=== PATIENT | female | born 1955 | race Caucasian/White ===

== ENCOUNTER 2017-01-24 07:00 | Day surgery (SDC) | payer OTHER ==
[~2017-01-24 07:00] MED LIST: Dexamethasone 4 MG/ML SDV ONE; Ketorolac 30 MG/ML SDV ONE; Lactated Ringers 1,000 ML IV SCH; Lactated Ringers 1,000 ML ONE; Lidocaine 1% 2 ML SDV ONE; Lidocaine 1%/Sod Bicarbonate in NS 8.4% 1 ML Syringe IV PRN; Midazolam 1 MG/ML 2 ML SDV ONE; Ondansetron 4 MG/2 ML SDV ONE; Propofol 200 MG/20 ML SDV ONE; Rocuronium 50 MG/5 ML Vial ONE; Sodium Chloride 0.9% 10 ML Syringe FLUSH PRN; ceFAZolin 1 GM Vial ONE; fentaNYL 250 MCG/5 ML SDV ONE
--- NOTE | 2017-01-24 07:44 | PCM.PREANE ---
Preanesthetic Assessment - ANESTHESIA/TRANSFUSION/FAMILY HX Anesthesia/Transfusion History: No Prior Transfusion(s), Prior Anesthesia Type of Anesthesia Reaction: Reports: Other (see below) (Hx of respiratory distress with hyster.). Denies: Allergy, Anesthesia Awareness, Excessive Somnolence, Excessive Nausea/Vomiting, Excessive Itching, Excessive Shivering, Malignant Hyperthermia, Malignant Hyperthermia, Family History, Pseudocholinesterase Deficiency, Pseudocholinesterase Deficiency, Family History of, Urinary Retention, Unknown Family History of Anesthesia Reaction: No Intubation History: Unknown - REVIEW OF SYSTEMS Constitutional: Reports: no symptoms Respiratory: Reports: no symptoms (GEORGINA/ current smoker 2-3 packs/day times 45 years./COPD), cough, shortness of breath (orthopnea) Cardiovascular: Reports: blood pressure problem, dyspnea on exertion GI: Reports: no symptoms (GERD/Hiatal hernia), difficulty swallowing (thick mucous.) Other: Reports: diabetes (0730 BS= 100), sinus problem - PHYSICAL ASSESSMENT HR: 76 O2 Sat by Pulse Oximetry: 93 RR: 16 BP: 157/79 Temp: 37.0 C Height: 1.5 m Weight: 102.058 kg NPO Status Date: 01/23/17 NPO Status Time: 23:59 ASA Class: 3 Mental Status: alert & oriented x3 Airway Class: Mallampati = 3 Dentition: Reports: normal dentition, missing tooth/teeth, caries Thyro-Mental Finger Breadths: 3 Mouth Opening Finger Breadths: 3 ROM/Head Extension: full Respiratory Status: lungs clear to auscultation bilaterally, diminished breath sounds Cardiovascular Status: regular rate & rhythm, normal S1, S2, no murmur - LAB Values: Laboratory Last Values POC Glucose 100 mg/dL (80-115) 01/24/17 07:30 Reviewed and noted. - IMAGING/EKG Impressions: EKG: SR rate 66 CXR: Hyperinflation, no acute changes noted. - ALLERGIES Allergies/Adverse Reactions: Allergies Allergy/AdvReac Type Severity Reaction Status Date / Time egg Allergy Rash Verified 01/23/17 14:23 wheat Allergy Cough Verified 01/23/17 14:23 - ANESTHESIA PLAN Preop Beta Jimena: Yes Beta Jimena: Atenolol Beta-Jimena Last Dose Date: 01/24/17 Beta-Jimena Last Dose Time: 05:15 Anesthesia Type Planned: general anesthesia - ACKNOWLEDGEMENTS Pt an appropriate candidate for the planned anesthesia: Yes Alternatives and risks of anesthesia discussed w pt/guardian: Yes Pt/Guardian understands and agree with anesthesia plan: Yes PreAnesthesia Questionnaire HEENT History: Reports: None Cardiovascular History: Reports: High cholesterol, Hypertension Other Cardiovascular History: hypercholesterolemia - possible PVD per patient Respiratory History: Reports: Sleep apnea Gastrointestinal History: Reports: GERD Genitourinary History: Reports: None Other Genitourinary History: chronic hematuria 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: Musculoskeletal History: Reports: Arthritis Neurological History: Reports: None Other Neuro History: Bilateral Sciatica Other Psychiatric History: Insomnia Endocrine/Metabolic History: Reports: Diabetes, type II, Obesity/BMI 30+ Hematologic History: Reports: Polycythemia Immunologic History: Reports: None Oncologic (Cancer) History: Reports: None Dermatologic History: Reports: Other (see below) Other Dermatologic History: Hydradenitis, Right groin abscess - Past Surgical History HEENT Surgical History: Reports: Tonsillectomy Cardiovascular Surgical History: Reports: None Respiratory Surgical History: Reports: None GI Surgical History: Reports: Cholecystectomy Female Surgical History: Reports: D&C, Hysterectomy Endocrine Surgical History: Reports: None Neurological Surgical History: Reports: None Musculoskeletal Surgical History: Reports: None Oncologic Surgical History: Reports: None - SUBSTANCE USE Smoking Status *Q: Heavy Tobacco Smoker Tobacco Use Within Last Twelve Months: Cigarettes Second Hand Smoke Exposure: No Recreational Drug Use History: No - HOME MEDS Home Medications: Home Meds Acetaminophen [Tylenol Extra Strength] 500 mg PO Q4H PRN 07/26/15 [History] Aspirin 81 mg PO DAILY 07/26/15 [History] Calcium Carbonate [Antacid] 600 mg PO BID 07/26/15 [History] Gemfibrozil 600 mg PO BID 07/26/15 [History] Ibuprofen 200 mg PO Q6HR PRN 07/26/15 [History] Lisinopril/Hydrochlorothiazide [Lisinopril-Hctz 20-12.5 mg Tab] 1 tab PO DAILY 07/26/15 [History] Omeprazole 20 mg PO DAILY 07/26/15 [History] Ranitidine HCl 300 mg PO BID 07/26/15 [History] Zolpidem Tartrate [Ambien] 5 mg PO BEDTIME 07/26/15 [History] atorvaSTATin [Lipitor] 20 mg PO DAILY 07/26/15 [History] Atenolol [Atenolol] 50 mg PO DAILY 01/23/17 [History] Magnesium 200 mg PO DAILY 01/23/17 [History] Milk Thistle 500 mg PO BID 01/23/17 [History] - CURRENT (IN HOUSE) MEDS Current Meds: Current Medications Lactated Ringer's (Ringers, Lactated) 1,000 mls @ 125 mls/hr IV ASDIRECTED JUAN Stop: 01/24/17 23:00 Lidocaine/Sodium Bicarbonate (Buffered Lidocaine 1% In Ns 8.4%) 0.25 ml IV ONETIME PRN PRN Reason: Prior to IV Start Stop: 01/24/17 18:00 Sodium Chloride (Saline Flush) 10 ml FLUSH ASDIRECTED PRN PRN Reason: Keep Vein Open Stop: 01/24/17 18:00 Discontinued Medications Cefazolin Sodium (Ancef) Confirm Administered Dose 2 gm .ROUTE .STK-MED ONE Stop: 01/24/17 06:10 Dexamethasone (Dexamethasone) Confirm Administered Dose 4 mg .ROUTE .STK-MED ONE Stop: 01/24/17 06:10 Fentanyl (Sublimaze) Confirm Administered Dose 250 mcg .ROUTE .STK-MED ONE Stop: 01/24/17 06:11 Lactated Ringer's (Ringers, Lactated) Confirm Administered Dose 1,000 mls @ as directed .ROUTE .STK-MED ONE Stop: 01/24/17 06:10 Ketorolac Tromethamine (Toradol) Confirm Administered Dose 30 mg .ROUTE .STK- MED ONE Stop: 01/24/17 06:10 Lidocaine HCl (Lidocaine 1%) Confirm Administered Dose 6 ml .ROUTE .STK-MED ONE Stop: 01/24/17 06:10 Midazolam HCl (Versed 1 Mg/Ml) Confirm Administered Dose 2 mg .ROUTE .STK-MED ONE Stop: 01/24/17 06:11 Ondansetron HCl (Zofran) Confirm Administered Dose 4 mg .ROUTE .STK-MED ONE Stop: 01/24/17 06:10 Propofol (Diprivan 20 Ml) Confirm Administered Dose 200 mg .ROUTE .STK-MED ONE Stop: 01/24/17 06:11 Rocuronium [place] (Zemuron) Confirm Administered Dose 50 mg .ROUTE .STK-MED ONE Stop: 01/24/17 06:10
[2017-01-24] MEDS ORDERED: Albuterol 0.083% 2.5 MG/3 ML Neb Soln NEB ONE (07:45)
[2017-01-24] MEDS ORDERED: Albuterol 0.083% 2.5 MG/3 ML Neb Soln ONE (07:47)
[2017-01-24] MEDS ORDERED: Bupivacaine 0.25% 30 ML SDV ONE (07:50)
[2017-01-24] MEDS ORDERED: Lidocaine 1% 2 ML SDV ONE ×3 (08:42)
[2017-01-24] MEDS ORDERED: Propofol 200 MG/20 ML SDV ONE (08:45)
[2017-01-24] MEDS ORDERED: Succinylcholine/Normal Saline 100 MG/5 ML Syringe ONE (08:57)
[2017-01-24] MEDS ORDERED: Albuterol 6.7 GM Inhaler INH ONE (08:57)
[2017-01-24] MEDS ORDERED: HYDROmorphone 1 MG/ML Syringe ONE (08:58)
[2017-01-24] MEDS ORDERED: Phenylephrine/Normal Saline 100 MCG/ML 10 ML Syringe ONE (09:07)
[2017-01-24] MEDS ORDERED: fentaNYL 100 MCG/2 ML SDV IVPUSH PRN (09:11)
[2017-01-24] MEDS ORDERED: Albuterol 0.083% 2.5 MG/3 ML Neb Soln NEB PRN (09:11)
[2017-01-24] MEDS ORDERED: Ondansetron 4 MG/2 ML SDV IVPUSH PRN (09:11)
[2017-01-24] MEDS ORDERED: ePHEDrine 50 MG/ML SDV IVPUSH PRN (09:11)
[2017-01-24] MEDS ORDERED: ePHEDrine/Normal Saline 25 MG/5 ML Syringe ONE (09:15)
[2017-01-24] MEDS ORDERED: Phenylephrine 1 MG in Sodium Chloride 0.9% 10 ML IV SCH (09:15)
[2017-01-24] MEDS ORDERED: HYDROmorphone 0.5 MG/0.5 ML Syringe IVPUSH PRN (10:15)
--- NOTE | 2017-01-24 10:22 | PCM.POSTAN ---
POST ANESTHESIA ASSESSMENT - MENTAL STATUS Mental Status: alert - VITAL SIGNS Pulse Rate: 82 SaO2: 91 Resp Rate: 27 Blood Pressure: 108/48 Temperature: 36.8 C - RESPIRATORY Respiratory Status: respiratory rate WNL, airway patent, O2 saturation stable, supplemental oxygen - CARDIOVASCULAR CV Status: pulse rate WNL, blood pressure stable - GASTROINTESTINAL GI Status: no symptoms - POST OP HYDRATION Hydration Status: adequate & stable
[2017-01-24] MEDS ORDERED: oxyCODONE ER 10 MG TAB.ER PO SCH ×2 (10:45→11:00)
[2017-01-24] MEDS ORDERED: Scopolamine 1.5 MG Transdermal Patch TOP PRN (11:30)
--- NOTE | 2017-01-24 11:47 | PCM48HPAN ---
Post Anesthesia Note - EVALUATION WITHIN 48HRS OF ANESTHETIC Vital Signs in Normal Range: Yes Patient Participated in Evaluation: Yes Respiratory Function Stable: Yes Airway Patent: Yes Cardiovascular Function Stable: Yes Hydration Status Stable: Yes Pain Control Satisfactory: Yes Nausea and Vomiting Control Satisfactory: Yes Mental Status Recovered: Yes
[2017-01-24] MEDS ORDERED: diphenhydrAMINE 50 MG/ML SDV IVPUSH ONE (12:15)
[2017-01-24 14:19] VITALS: BP 139/82
--- NOTE | 2017-01-24 19:29 | OR ---
DATE OF OPERATION: 01/24/2017 SURGEON: Maximo Hagen MD PREOPERATIVE DIAGNOSIS: Right thumb carpometacarpal arthritis. POSTOPERATIVE DIAGNOSIS: Right thumb carpometacarpal arthritis. OPERATION PERFORMED: Right thumb trapeziectomy with suspensionplasty, FCR tendon transfer. RADIOSONDE SPECIALIST: Nicky Long. ANESTHESIA: General. COMPLICATIONS: None. ESTIMATED BLOOD LOSS: Minimal. INDICATIONS: Ms. Hardin is a pleasant 61-year-old female, who presents with a right thumb CMC arthritis. After discussing the risks, benefits, and alternatives to both conservative as well as surgical treatment, the patient verbalized understanding and wished to proceed with surgery. DESCRIPTION OF PROCEDURE: The patient was brought to the operating room, underwent the general anesthetic. Right upper extremity was prepped and draped in standard orthopedic fashion. Surgical pause was performed, identifying the appropriate patient and appropriate extremity to be operated upon. Preoperative antibiotics were given. A standard Reyes approach was utilized and sharp dissection was carried down from the skin and subcutaneous tissue. Hemostasis was obtained. We elevated the muscle mass of the CMC joint capsule. I then incised the FCR tendon sheath to its distal extent and identified the FCR tendon. We released the joint capsule along the FCR and along the medial aspect of the trapezium. We then incised the capsule overlying the CMC joint. We then circumferentially released the capsule around the trapezium completely. I utilized she had a grade 4 changes at the CMC joint. Utilizing a small sagittal saw, we split the trapezium into 4 pieces and then with an osteotome completed the fracture through the trapezium. We then removed the trapezium in a piecemeal fashion. We then subsequently did a counterincision proximally over the FCR tendon sheath. One about 2 cm proximal and one about 8 cm to 10 cm proximal. Sharp dissection was carried down through the skin and subcutaneous tissue and obtained hemostasis. We identified the FCR tendon. We opened the FCR tendon sheath. We then planned to place an Ethibond suture through the proximal portion of the FCR tendon sheath and retrieved this from the distal incision. We utilized the Ethibond like a Gigli saw and split the tendon distally down to the sheath. Once we retrieved the tendon from the distal incision, we then split the tendon down to the base of the second metacarpal. We then identified the AP tendon at the base of the metacarpal. Utilizing a right angle, we utilized the free end of the tendon, which was attached to the second metacarpal base. We brought this up through the capsule of the joint at the APL insertion. We then weaved this around the intact FCR tendon to suspend the thumb in place. We then tightened the suspension, sutured this in place with a 2-0 FiberWire suture. We then incorporated the joint capsule into the repair. We closed the distal extension of the sheath with a 2-0 FiberWire. The tail of the tendon which was remaining, we fashioned into an anchovy and then placed this into the joint space. We irrigated the wound sterilely. We closed the proximal incisions with 5-0 nylon. We closed the thenar musculature back to the muscular slip of the APL and closed the skin with 5-0 nylon. We then injected the joint and subcutaneous tissue with 0.25% bupivacaine without epinephrine. She was placed on well-padded thumb spica splint and brought to recovery in satisfactory condition. [id number] /[id number]
== END 2017-01-24 14:10 | disposition home or self-care (01) ==
LOC: JD.SDS 07:00
PROVIDERS: ATTEND Orthopaedic Surgery
PROC: 0RUS0KZ Supplement Right Carpometacarpal Joint with Nonautologous Tissue Substitute, Open Approach (ICD-10-PCS; principal; 2017-01-24)
DX: M18.11 Unilateral primary osteoarthritis of first carpometacarpal joint, right hand (principal)
CPT/HCPCS: 25447; 82962; 87641; 94640; 94664; A9270; J0330; J0690; J1100; J1170; J1200; J1885; J2250; J2405; J3010; J7050; J7120; 01830; J2704; J3490